=== PATIENT | female | born 1945 | race African-American/Black ===

== ENCOUNTER 2016-08-19 08:25 | Emergency (ER) | payer OTHER ==
[2016-08-19 08:42] VITALS: BP 156/89; PULSE 85; TEMP 98.6; BMI 31.6
--- NOTE | 2016-08-19 09:02 | PDOC ---
History of Present Illness - General Chief Complaint: Wound Stated Complaint: LOWER PELVIC PAIN Time Seen by Provider: 08/19/16 08:52 History Source: Patient - History of Present Illness Timing/Duration: reports: other Location: reports: torso Past History - Past Medical History Allergies/Adverse Reactions: Allergies Allergy/AdvReac Type Severity Reaction Status Date / Time Iodinated Contrast Media - Allergy Verified 08/19/16 08:48 Oral and Penicillins Allergy Unverified 08/19/16 08:48 pepper Allergy Verified 08/19/16 08:48 Home Medications: Ambulatory Orders Clotrimazole 30 gm TP BID #30 cream..g. 08/19/16 Other medical history: arthritis - Surgical History Abdominal Surgery: Yes (JUN 1979) - Psycho/Social/Smoking Cessation Hx Suicidal Ideation: No Smoking History: Never smoked Hx Alcohol Use: No Drug/Substance Use Hx: No Substance Use Type: None Review of Systems - Review of Systems Constitutional: No: Chills, Fever Integumentary: Yes: Pruritus *Physical Exam - Vital Signs Last Vital Signs Temp Pulse Resp BP Pulse Ox 98.6 F 85 16 156/89 97 08/19/16 08:36 08/19/16 08:36 08/19/16 08:36 08/19/16 08:36 08/19/16 08:36 - Physical Exam General Appearance: Yes: Appropriately Dressed. No: Apparent Distress HEENT: positive: Normal Voice Neck: positive: Supple Respiratory/Chest: negative: Respiratory Distress Integumentary: positive: Dry, Warm, Other (erythematous, scaling patch under abd pannus on L side, c/w tinea, no swelling, tenderness or increased warmth) Neurologic: positive: Fully Oriented, Alert, Normal Mood/Affect Medical Decision Making - Medical Decision Making 08/19/16 09:06 71-year-old female history of fibroids, status post surgery in 1979, ? arthritis , here w/ itching to lower abd wall x several weeks. Denies rash or pain. Here seeking medical evaluation for the first time today because symptoms persist as per patient. Patient well-appearing and stable with erythematous, scaly patch under her pannus to left side of abdomen consistent with gigi, no signs of infection at this time. DC with antifungal cream and PMD follow-up *DC/Admit/Observation/Transfer Diagnosis at time of Disposition: Tinea corporis - Discharge Dispostion Disposition: HOME Condition at time of disposition: Good - Prescriptions Prescriptions: Clotrimazole 30 gm TP BID #30 cream..g. - Patient Instructions Printed Discharge Instructions: DI for Tinea Corporis Additional Instructions: Apply cream as directed Please follow-up at [facility] at [phone]
== END 2016-08-19 09:12 | disposition home or self-care (01) ==
LOC: JERFT 08:25
DX: B35.4 Tinea corporis (principal)
CPT/HCPCS: 99281-25

== ENCOUNTER 2018-06-14 06:56 | Emergency (ER) | payer OTHER ==
[2018-06-14 07:43] VITALS: BP 158/82; PULSE 81; TEMP 98; BMI 34.3
--- NOTE | 2018-06-14 08:05 | PDOC ---
History of Present Illness - General Chief Complaint: Rash Stated Complaint: RASH Time Seen by Provider: 06/14/18 07:52 - History of Present Illness Initial Comments: 73yo F presenting with rash. The rash is nontender, non-itchy, erythematous, and present on the left side of her lower abdomen under a panniculus. She noticed the rash for the first time this morning and reports that it is foul- smelling. She last had a rash one year ago for which she was prescribed a white cream, ane the rash resolved. Per chart review, patient was seen on 08/19/16 with similar presentation as today and was prescribed antifungal cream. Patient denies any past medical history. She does not take any medications. Patient noticed the rash this morning. She reports that her blood sugar was checked 2-3 weeks ago at [facility] which was found to be normal. Patient denies history of diabetes, HIV, recent steroid use, or other risk factors of immunocompromise. No fever or chills. Past History - Past Medical History Allergies/Adverse Reactions: Allergies Allergy/AdvReac Type Severity Reaction Status Date / Time Iodinated Contrast- Oral and Allergy Verified 06/14/18 07:08 IV Dye [Iodinated Contrast Media - Oral and] Penicillins Allergy Unverified 06/14/18 07:08 pepper (genus Capsicum) Allergy Verified 06/14/18 07:08 [pepper] Home Medications: Ambulatory Orders Clotrimazole 30 gm TP BID #30 cream..g. 08/19/16 Nystatin Cream [Mycostatin Cream -] 1 applic TP BID #1 bottle 06/14/18 Nystatin Powder [Nystop Powder -] 15 gm TP BID #1 bottle 06/14/18 COPD: No - Surgical History Abdominal Surgery: Yes (JUN 1979) - Immunization History Immunization Up to Date: Yes - Suicide/Smoking/Psychosocial Hx Smoking History: Never smoked Hx Alcohol Use: No Drug/Substance Use Hx: No Substance Use Type: None Review of Systems - Review of Systems Comments:: Constitutional: no fever, no chills Cardiovascular: no chest pain Respiratory: no shortness of breath Gastrointestinal: no abdominal pain, no vomiting Genitourinary: no dysuria, no hematuria Skin: +rash, no itching Neurologic: no headache, no dizziness *Physical Exam - Vital Signs Last Vital Signs Temp Pulse Resp BP Pulse Ox 98.0 F 81 18 158/82 97 06/14/18 07:09 06/14/18 07:09 06/14/18 07:09 06/14/18 07:09 06/14/18 07:09 - Physical Exam Comments: General: Awake, alert, and fully oriented; obese Head: No signs of trauma Eyes: EOMI, sclera anicteric ENT: Moist mucus membranes Neck: Normal ROM, supple Lungs: Lungs clear, Normal breath sounds Cardio: Regular rhythm, S1 and S2 present Abdomen: Soft, nontender. Extremities: Normal range of motion, Distal pulses present SKIN: Warm, Dry, normal turgor; +rash on inferior aspect of panniculus on left side of lower abdomen measuring 12x2cm, nonpalpable, erythematous and foul smelling, with no swelling/tenderness/fluctuance. Neurologic: Cranial nerves II through XII grossly intact. Normal speech Moderate Sedation - Procedure Monitoring Vital Signs: Procedure Monitoring Vital Signs Temperature 98.0 F 06/14/18 07:09 Pulse Rate 81 06/14/18 07:09 Respiratory Rate 18 06/14/18 07:09 Blood Pressure 158/82 06/14/18 07:09 O2 Sat by Pulse Oximetry (%) 97 06/14/18 07:09 Medical Decision Making - Medical Decision Making 73yo F presenting with rash. The rash is nontender, non-itchy, erythematous, and present on the left side of her lower abdomen under a panniculus. -DDX includes but not limited to: candidiasis infection, abscess, medication side effect, inflammation, eczema, psoriasis -Presentation consistent with yeast infection. Patient denies risk factors for immunocompromise. Reports that her glucose level was checked 2-3 weeks ago and was "normal" -Prescribed antifungal, nystatin cream and powder -Patient very insistent on leaving twenty minutes after being seen by provider as she has been waiting for a long time -Discharge home 06/14/18 08:28 *DC/Admit/Observation/Transfer Diagnosis at time of Disposition: Rash - Discharge Dispostion Disposition: HOME Condition at time of disposition: Stable - Prescriptions Prescriptions: Nystatin Cream [Mycostatin Cream -] 1 applic TP BID #1 bottle Nystatin Powder [Nystop Powder -] 15 gm TP BID #1 bottle - Referrals Referrals: Werner Cardoza MD [Primary Care Provider] - - Patient Instructions Printed Discharge Instructions: DI for Yeast Infection-Skin Additional Instructions: You came to the ED for a rash. This is consistent with a yeast infection. Keep the area clean. Prescriptions sent to your pharmacy: Nystatin Cream, ointment: Apply to the affected areas twice daily or as indicated until healing is complete Nystatin Powder: Apply to the affected areas 2 to 3 times daily until healing is complete Contact your primary care physician, Dr. Cardoza, if your recovery is not progressing as expected or you develop complications such as: signs of infection including fever or pus like drainage from the skin, symptoms last longer than you or your doctor expect, new or unexpected symptoms. If you think you have an emergency, call for medical help right away. - Post Discharge Activity
--- NOTE | 2018-06-14 08:44 | PDOC ---
Attending Attestation - Resident Resident Name: Janine Gomez - ED Attending Attestation I have performed the following: I have examined & evaluated the patient, The case was reviewed & discussed with the resident, I agree w/resident's findings & plan, Exceptions are as noted - HPI HPI: 06/14/18 08:41 73 yo F with no pmhx here with c/o rash left lower abd (noted foul odor) no FC no n/v no other complaints. pt states is not diabetic, was recently screen for diabetes 2 - 3 weeks ago by her primary doctor. - Physicial Exam PE: 06/14/18 08:42 awake alert lungs clear bilaterally heart rrr no mrg abd soft nt nd. under left lower panus crease, pt with skin break down, mild erythema. no warmth. moisture, small satellite lesions. no scabbing. stage 1. otherwise skin warm and dry. - Medical Decision Making 06/14/18 08:43 pt with candiasis of skin fold, will treat with triamcinolone and nystatin. told to clean the area daily, and avoid moisture in the area, with nystatin powder during day and cream at night. also told to followup with pcp.
== END 2018-06-14 09:00 | disposition home or self-care (01) ==
LOC: JER 06:56
DX: R21 Rash and other nonspecific skin eruption (principal)
CPT/HCPCS: 99281-25

== ENCOUNTER 2019-02-06 14:32 | Emergency (ER) | payer OTHER ==
[2019-02-06 15:01] VITALS: BP 125/71; PULSE 93; TEMP 97.5; BMI 29.2
== END 2019-02-06 15:15 | disposition left against medical advice (07) ==
LOC: JER 14:32
DX: Z53.21 Procedure and treatment not carried out due to patient leaving prior to being seen by health care provider (principal)
CPT/HCPCS: 99281-25